=== PATIENT | female | born 1990 | race Caucasian/White ===

== ENCOUNTER 2019-09-17 21:21 | Emergency (ER) | payer OTHER ==
[~2019-09-17] VITALS: Ht 162.6 cm; Wt 56.7 kg
--- NOTE | 2019-09-17 21:41 | NUR ---
BIBPARTNER FROM HOME TO ER BED 10. AAOX4. NOT IN RESP DISTRESS. AMBULATORY. C/O R ANKLE PAIN W/ LACERATION. PT REPORTS THAT A WINE GLASS DROPPED ON HER R ANKLE AND OBTAINED A LACERATION ABOUT 1 CM LONG. NOT ACTIVELY BLEEDING. ROM INTACT AND SENSATION FELT. AWAITING MD FOR EVAL.
[2019-09-17] MEDS ORDERED: TDAP [DIPH/PERTUSSIS/TET] 0.5 ML VIAL IM ONE ×2 (22:00→22:15)
--- NOTE | 2019-09-17 22:17 | NUR ---
TETANUS VACCINE ADMINISTERED ON L DELTOID. CONSENT OBTAINED FROM PT. LOT# [id number] EXP: 02/27/2021
--- NOTE | 2019-09-17 22:55 | NUR ---
PT OS MEDICALLY CLEAR FOR D/S. R ANKLE SUTURES AND DRESSING REMAINED C/D/I. NO BLEEDING NOTED. Patient discharged to home in stable condition. Rx and Written and verbal after care instructions given. Patient verbalizes understanding of instruction.
[2019-09-17 22:59] VITALS: BP 118/62
== END 2019-09-17 22:59 | disposition home or self-care (01) ==
LOC: ER 21:21
DX: S91.011A Laceration without foreign body, right ankle, initial encounter (principal); W22.8XXA Striking against or struck by other objects, initial encounter; Y93.89 Activity, other specified; Y92.89 Other specified places as the place of occurrence of the external cause; Y99.8 Other external cause status; Z88.1 Allergy status to other antibiotic agents
CPT/HCPCS: 12001; 73610; 90471; 90715; 99283; A6403

== ENCOUNTER 2019-09-20 07:17 | Emergency (ER) | payer OTHER ==
[~2019-09-20] VITALS: Ht 162.6 cm; Wt 52.2 kg
[2019-09-20 07:22] VITALS: BP 105/64
--- NOTE | 2019-09-20 07:40 | NUR ---
SEEN AND EXAMINED BY .
--- NOTE | 2019-09-20 07:45 | NUR ---
WOUND CLEANING AND DRESSING DONE BY [employer]NEL FEEDER.
--- NOTE | 2019-09-20 07:55 | NUR ---
Patient discharged to home in stable condition. Written and verbal after care instructions given. Patient verbalizes understanding of instruction.
== END 2019-09-20 07:56 | disposition home or self-care (01) ==
LOC: ER 07:18
DX: S91.011D Laceration without foreign body, right ankle, subsequent encounter (principal); Z88.1 Allergy status to other antibiotic agents; X58.XXXD Exposure to other specified factors, subsequent encounter

== ENCOUNTER 2019-09-26 07:31 | Emergency (ER) | payer OTHER ==
[~2019-09-26] VITALS: Ht 162.6 cm; Wt 52.2 kg
--- NOTE | 2019-09-26 07:56 | NUR ---
3 SUTURES REMOVED. PROVIDED W/ WOUND CARE. D/C IN STABLE CONDITION.
[2019-09-26 07:58] VITALS: BP 115/67
== END 2019-09-26 07:59 | disposition home or self-care (01) ==
LOC: ER 07:31
DX: S91.011D Laceration without foreign body, right ankle, subsequent encounter (principal); Z88.8 Allergy status to other drugs, medicaments and biological substances; W25.XXXD Contact with sharp glass, subsequent encounter